=== PATIENT | male | born 1980 | race Caucasian/White ===

== ENCOUNTER 2021-08-10 10:54 | Emergency (ER) | payer OTHER ==
[~2021-08-10] VITALS: Ht 185.4 cm; Wt 127.0 kg
[~2021-08-10 10:54] MED LIST: BENTYL10 MG PO; CARAFATE S500 MG/TSP PO; FIORICET1 EACH PO; FLOMAX0.4 MG PO; IBUPROFEN800 MG PO; NORCO 5-325 TA1 EACH PO; NORVASC5 MG PO; ONDANSETRON ODT4 MG SL; PERCOCET 5-3251 EACH PO; PROTONIX 40MG T40 MG PO; VIBRAMYCIN100 MG PO; VOLTAREN **OUT50 MG PO; ZOFRAN4 MG SL
[2021-08-10 15:07] LABS: BILIRUBIN NEGATIVE (NEGATIVE); BLOOD 3+ Ery/uL (NEGATIVE); CLARITY CLEAR (CLEAR); COLOR YELLOW (YELLOW); GLUCOSE (U) NORMAL (NORMAL); LEUKOCYTES NEGATIVE Leu/uL (NEGATIVE); NITRITE NEGATIVE (NEGATIVE); PROTEIN NEGATIVE (NEGATIVE); SPECIFIC GRAVITY 1.025 (1.001-1.030); UROBILINOGEN 0.2 mg/dL (0.2-1.0)
[2021-08-10 15:14] LABS: BASOPHIL 0.3 % (0-2); EOSINOPHIL 2.4 % (0-5); HCT 46.9 % (42.0-52.0); LYMPHOCYTE 25.3 % (15-48); MCH 29.4 pg (25.0-31.0); MCHC 34.1 g/dL (32.0-36.0); MCV 86.1 fL (78.0-100.0); MPV 12.4 fL (6.0-9.5); NEUTROPHIL 64.7 % (41-80); NRBC 0; PLT 199 K/uL (150-400); RBC 5.45 M/uL (4.70-6.00); RDW 13.4 % (11.5-14.0); WBC 11.6 K/uL (4.0-10.5)
[2021-08-10 15:16] LABS: BACTERIA 1+; SQUAMOUS EPITHELIAL CELLS >50; URINARY RBC 20-50
[2021-08-10 16:18] LABS: ALBUMIN 3.5 g/dL (3.4-5.0); BILIRUBIN - TOTAL 0.4 mg/dL (0.2-1.0); BUN/CREAT RATIO (CALC) 13.8 RATIO; CREATININE 0.87 mg/dL (0.67-1.17); GLOBULIN (CALCULATION) 3.6 g/dL; POTASSIUM 3.8 mmol/L (3.5-5.1); TOTAL PROTEIN 7.1 g/dL (6.4-8.2)
[2021-08-10] MEDS ORDERED: KETOROLAC TROME10 MG PO (17:04)
[2021-08-10] MEDS ORDERED: FLOMAX0.4 MG PO (17:04)
[2021-08-10] MEDS ORDERED: ONDANSETRON ODT4 MG PO (17:04)
== END 2021-08-10 17:33 | disposition home or self-care (01) ==
LOC: FER 10:54
PROVIDERS: Physician Assistant
DX: N13.2 Hydronephrosis with renal and ureteral calculous obstruction (principal); I10 Essential (primary) hypertension; Z87.442 Personal history of urinary calculi; Z88.0 Allergy status to penicillin; Z88.5 Allergy status to narcotic agent; Z79.899 Other long term (current) drug therapy
CPT/HCPCS: 36415; 80053; 81001; 85025; J1885; J2405; J7030